=== PATIENT | female | born 1950 | race Caucasian/White ===

== ENCOUNTER 2017-02-02 13:32 | Emergency (ER) | payer MEDICARE ==
--- NOTE | 2017-02-02 14:00 | ERPHSYRPT ---
- History of Present Illness Time Seen by Provider: 02/02/17 13:56 Source: patient Exam Limitations: no limitations Patient Subjective Stated Complaint: fell, injury to forehead and left hand Triage Nursing Assessment: ambulated to room per self. large lac noted to right forehead with minimal bleeding noted. slight swelling to left hand. hand warm, cap refill good Physician History: fell, injury to forehead and left hand Occurred: just prior to arrival Reason for Fall: lost balance, slipped, tripped Injuries/Pain Location: head, upper extremity (left hand) Loss of Consciousness: no loss of consciousness Severity of Pain-Max: none Severity of Pain-Current: none Modifying Factors: Improves With: nothing Associated Symptoms (Fall): denies symptoms Allergies/Adverse Reactions: Sulfa (Sulfonamide Antibiotics) Allergy (Verified 02/02/17 13:46) Hives Home Medications: Aspirin [Adult Low Dose Aspirin EC] 81 mg PO DAILY 12/07/15 [History] Atorvastatin Calcium [Lipitor] 10 mg PO DAILY 12/07/15 [History] Cholecalciferol (Vitamin D3) [Vitamin D] 1 tab PO DAILY 12/07/15 [History] Escitalopram Oxalate 10 mg [Lexapro 10 MG] 1 tab PO DAILY 12/07/15 [History] Levothyroxine Sodium [Synthroid] 1 tab PO DAILY 12/07/15 [History] Multivitamin [Multi-Vitamin Daily] 1 tab PO DAILY 12/07/15 [History] Hx Tetanus, Diphtheria Vaccination/Date Given: No Hx Influenza Vaccination/Date Given: No Hx Pneumococcal Vaccination/Date Given: No - Review of Systems Constitutional: No Symptoms Eyes: No Symptoms Ears, Nose, & Throat: No Symptoms Respiratory: No Symptoms Cardiac: No Symptoms Abdominal/Gastrointestinal: No Symptoms Musculoskeletal: Fall Skin: Other (right forehead laceration above right eye) Neurological: No Symptoms - Past Medical History Pertinent Past Medical History: Yes Neurological History: No Pertinent History ENT History: Cataracts Cardiac History: Other Respiratory History: No Pertinent History Endocrine Medical History: Hypothyroidism Musculoskeletal History: Arthritis GI Medical History: No Pertinent History History: No Pertinent History Psycho-Social History: Depression Female Reproductive Disorders: No Pertinent History Other Medical History: pvc's - Past Surgical History Past Surgical History: Yes Neuro Surgical History: No Pertinent History Cardiac: No Pertinent History Respiratory: No Pertinent History Gastrointestinal: No Pertinent History Genitourinary: No Pertinent History Musculoskeletal: Joint Replacement Female Surgical History: No Pertinent History Other Surgical History: right hip replacement, raj knee replacement january 2015, aug 2015, oct 2015, tonsil as child - Social History Smoking Status: Never smoker Exposure to second hand smoke: No Drug Use: none Patient Lives Alone: No - Nursing Vital Signs Nursing Vital Signs: Initial Vital Signs Temperature 97.3 F Temperature Source Oral Respiratory Rate 16 Pain Intensity 4 - [place] Coma Score Best Eye Response (Kim): (4) open spontaneously Best Verbal Response ([place]): (5) oriented Best Motor Response (Kim): (6) obeys commands Kim Total: 15 - Physical Exam General Appearance: no apparent distress, alert Head Injury: no evidence of injury Eye Exam: PERRL/EOMI ENT Exam: airway nml Neck Exam: normal inspection, No tenderness Respiratory/Chest Exam: normal breath sounds, No chest tenderness, No respiratory distress Cardiovascular Exam: normal heart sounds, regular rate/rhythm Gastrointestinal Exam: soft, No tenderness, No distention, No guarding, No ecchymosis Back Exam: No vertebral tenderness Extremity Exam: normal inspection, joint swelling (left hand), No deformities Neurologic Exam: alert, oriented x 3, cooperative, sensation nml, No motor deficits Skin Exam: normal color, warm, dry, other (4 cms laceration over right eye brow) Oxygen Delivery: Room Air Procedures - Laceration/Wound Repair Right Frontal Wound Location: Right, forehead Wound Length (cm): 4 Wound's Depth, Shape: superficial Wound Explored: clean Irrigated: Yes Hibiclens Prep: Yes Anesthesia: local, 1% lidocaine w/ Epi Volume Anesthetic (ccs): 3 Wound Repaired With: sutures Suture Size/Type: 3-0, nylon Number of Sutures: 5 Layer Closure?: No Sterile Dressing Applied?: Yes Splint Applied?: No Sling Applied?: No - Course Nursing assessment & vital signs reviewed: Yes - Radiology Exams Hand X-ray Interpretation: Reviewed by me, Negative, No Fracture Ordered Tests: Active Orders 24 hr Category Date Time Status Prepare for Sutures STAT Care 02/02/17 14:29 Active Sutures STAT Care 02/02/17 14:29 Active HAND (MINIMUM 3 VIEWS) Stat Exams 02/02/17 13:48 Taken Medication Summary Discontinued Medications Generic Name Dose Route Start Last Admin Trade Name Freq PRN Reason Stop Dose Admin Bacitracin 0.9 gm 02/02/17 14:31 Baciguent Packet TP 02/02/17 14:32 STAT ONE Bacitracin Confirm 02/02/17 14:35 Baciguent Packet Administered 02/02/17 14:36 Dose 1 gm .ROUTE .STK-MED ONE Diphtheria/Tetanus/Acell Pertussis 0.5 ml 02/02/17 14:37 Adacel Vial IM 02/02/17 14:38 .ONCE ONE Diphtheria/Tetanus/Acell Pertussis Confirm 02/02/17 14:35 Adacel Vial Administered 02/02/17 14:36 Dose 0.5 ml IM .STK-MED ONE Lidocaine/Epinephrine Confirm 02/02/17 14:22 Xylocaine 1%/Epi 1:[id number] Mdv 20 Ml Administered 02/02/17 14:23 Dose 5 ml .ROUTE .STK-MED ONE Lidocaine/Epinephrine 5 ml 02/02/17 14:30 Xylocaine 1%/Epi 1:[id number] Mdv 20 Ml IJ 02/02/17 14:31 STAT ONE - Progress Progress: improved Counseled pt/family regarding: diagnosis, need for follow-up - Departure Time of Disposition: 14:41 Departure Disposition: Home Clinical Impression: Laceration of eyebrow and forehead Qualifiers: Encounter type: initial encounter Laterality: right Qualified Code(s): S01.111A - Laceration without foreign body of right eyelid and periocular area, initial encounter Condition: Stable Critical Care Time: No Referrals: KAYLEN CHOI [Primary Care Provider] - Instructions: Laceration Repair -- Simple, Care for a Laceration After Repair, Laceration Repair Additional Instructions: LACERATION CARE 1. Do not use peroxide, merthiolate, alcohol, or betadine. 2. Keep wound clean and dry. 3. Change dressing if it becomes wet or soiled. 4. If you must work, wear protective covering. 5. You may return to the emergency department or see your family physician for suture removal. 6. See your family physician or return to the emergency department for any of the following signs or symptoms: A. Redness B. Swelling C. Discolored drainage D. Red streaks E. Elevated temperature F. Other signs of infection
[2017-02-02] MEDS ORDERED: XYLOCAINE 1%/Epi 1:100000 MDV 20 ML ONE (14:22)
[2017-02-02] MEDS ORDERED: XYLOCAINE 1%/Epi 1:100000 MDV 20 ML IJ ONE (14:30)
[2017-02-02] MEDS ORDERED: BACIGUENT PACKET TP ONE (14:31)
[2017-02-02] MEDS ORDERED: Adacel Vial IM ONE ×2 (14:35→14:37)
[2017-02-02] MEDS ORDERED: BACIGUENT PACKET ONE (14:35)
[2017-02-02 15:01] VITALS: BP 143/71; PULSE 66; O2SAT 93
--- NOTE | 2017-02-02 21:18 | XRAY ---
Indication: Pain following fall. Comparison: September 28, 2013. 3 views of the left hand again demonstrates mild degenerative changes of the first metacarpal multangular articulation. No new/acute bony, articular, or soft tissue abnormalities.
== END 2017-02-02 15:01 | disposition home or self-care (01) ==
LOC: ED 13:32
PROC: 0HQ1XZZ Repair Face Skin, External Approach (ICD-10-PCS; principal; 2017-02-02)
DX: S01.111A Laceration without foreign body of right eyelid and periocular area, initial encounter (principal); W18.30XA Fall on same level, unspecified, initial encounter; M79.89 Other specified soft tissue disorders
CPT/HCPCS: 12013 ×2; 99284; 73130; A9270; 90471; 90715

== ENCOUNTER 2024-09-02 18:22 | Emergency (ER) | payer MEDICARE ==
--- NOTE | 2024-09-02 18:29 | ERPHSYRPT ---
- History of Present Illness Time Seen by Provider: 09/02/24 18:29 Source: patient, family Exam Limitations: no limitations Physician History: This is a morbidly obese 74-year-old white female patient of nurse practitioner Kalyn who at approximately 1645 was sitting on her couch watching TV and then made phone calls to family members but could not find the words to speak per her report. The symptoms completely resolved prior to arrival to the emergency department. Her NIH stroke scale in the emergency department is 0. Patient's primary care provider is nurse shar Mccain. Patient denies chest pain. Patient denies headache. Patient denies visual changes. Patient denies abdominal pain. She denies head injury. Patient does have a history of CHF, h ypothyroidism, hypertension, hyperlipidemia and is on Eliquis. Timing/Duration: today Severity: mild Character of Deficits: none Deficits: no difficulties Baseline/Normal Cognition: alert oriented x 3 Current Cognition: alert oriented x 3 Baseline Gait: walks w/o assistance Associated Symptoms: denies symptoms, other (Was briefly searching for words. Symptoms completely resolved prior to her arrival) Allergies/Adverse Reactions: amoxicillin Allergy (Verified 09/02/24 18:35) Hives clindamycin Allergy (Verified 09/02/24 18:35) Rash Sulfa (Sulfonamide Antibiotics) Allergy (Verified 09/02/24 18:35) Hives Home Medications: Atorvastatin Calcium [Lipitor] 80 mg PO HS 12/07/15 [History] Cholecalciferol (Vitamin D3) [Vitamin D] 1 tab PO DAILY 12/07/15 [History] Escitalopram Oxalate [Lexapro 10 MG] 1 tab PO DAILY 12/07/15 [History] Levothyroxine Sodium [Synthroid] 1 tab PO DAILY 12/07/15 [History] Multivitamin [Multi-Vitamin Daily] 1 tab PO DAILY 12/07/15 [History] Apixaban [Eliquis] 5 mg PO BID 09/02/24 [History] Ergocalciferol (Vitamin D2) [Vitamin D2] 50,000 unit PO Q7D 09/02/24 [History] Sacubitril/Valsartan [Entresto 24 mg-26 mg Tablet] 1 tab PO DAILY 09/02/24 [History] carvediloL [Carvedilol] 0.5 tab PO BID 09/02/24 [History] Hx Tetanus, Diphtheria Vaccination/Date Given: No Hx Influenza Vaccination/Date Given: No Hx Pneumococcal Vaccination/Date Given: No Travel Risk - International Travel Have you traveled outside of the country in past 3 weeks: No - Emerging Infectious Disease Are you exhibiting symptoms associated with any current EIDs: No - Vaccine Status Hx Covid Vaccintation/Booster/Date Given: No - Review of Systems Constitutional: No Symptoms Eyes: No Symptoms Ears, Nose, & Throat: No Symptoms Respiratory: No Symptoms Cardiac: No Symptoms Abdominal/Gastrointestinal: No Symptoms Genitourinary Symptoms: No Symptoms Musculoskeletal: No Symptoms Skin: No Symptoms Neurological: Other (13 forwards earlier today has resolved), No Dizziness, No Gait Changes, No Headache, No Lethargy, No Parasthesia, No Sensory Changes, No Speech Changes Psychological: No Symptoms Endocrine: No Symptoms Hematologic/Lymphatic: No Symptoms Immunological/Allergic: No Symptoms All Other Systems: Reviewed and Negative - Past Medical History Pertinent Past Medical History: Yes Neurological History: Migraines ENT History: Cataracts Cardiac History: Arrhythmia Respiratory History: No Pertinent History Endocrine Medical History: Hypothyroidism Musculoskeletal History: Osteoarthritis GI Medical History: No Pertinent History History: No Pertinent History Psycho-Social History: Depression Female Reproductive Disorders: No Pertinent History Other Medical History: AFIB, PACEMAKER, R CHARLETTE 7 YEARS AGO. - Past Surgical History Past Surgical History: Yes Neuro Surgical History: No Pertinent History Cardiac: No Pertinent History Respiratory: No Pertinent History Gastrointestinal: No Pertinent History Genitourinary: No Pertinent History Musculoskeletal: Joint Replacement Female Surgical History: No Pertinent History Other Surgical History: right hip replacement, raj knee replacement january 2015, aug 2015, oct 2015, tonsil as child - Social History Smoking Status: Never smoker Exposure to second hand smoke: No Drug Use: none Patient Lives Alone: No - Nursing Vital Signs Nursing Vital Signs: Initial Vital Signs Pulse Rate 84 09/02/24 18:33 Respiratory Rate 18 09/02/24 18:33 Blood Pressure 135/67 09/02/24 18:33 O2 Sat by Pulse Oximetry 94 L 09/02/24 18:33 Pain Scale Pain Intensity 0 - [place] Coma Scale Best Eye Response (Kim): (4) open spontaneously Best Verbal Response ([place]): (5) oriented Best Motor Response (Kim): (6) obeys commands Kim Total: 15 - Physical Exam General Appearance: no apparent distress, alert, anxiety, obese Eye Exam: bilateral eye: normal inspection, PERRL, EOMI Ears, Nose, Throat Exam: normal ENT inspection, moist mucous membranes Neck Exam: normal inspection, non-tender, supple, full range of motion Respiratory: normal breath sounds, lungs clear, airway intact, No chest tenderness, No respiratory distress Cardiovascular: regular rate/rhythm, normal heart sounds, normal peripheral pulses Gastrointestinal: soft, normal bowel sounds, No tenderness Pelvic Exam: not done Rectal Exam: not done Back Exam: normal inspection, normal range of motion, No CVA tenderness Extremity Exam: normal inspection, normal range of motion, pelvis stable Mental Status: alert, oriented x 3, cooperative senior medical writer Exam: normal hearing, normal speech, PERRL Coordination/Gait: normal finger to nose, normal gait, normal cerebellar function Motor/Sensory: no motor deficit, no sensory deficit Skin Exam: normal color, warm, dry SpO2 Interpretation: normal O2 Delivery: Room Air - Course Nursing assessment & vital signs reviewed: Yes Ordered Tests: Active Orders 24 hr Category Date Time Status EKG-ER Only STAT Care 09/02/24 19:09 Active IV Insertion STAT Care 09/02/24 19:09 Active NPO (ED) STAT Care 09/02/24 19:09 Active Pulse Oximetry (ED) STAT Care 09/02/24 19:09 Active HEAD WITHOUT CONTRAST [CT] Stat Exams 09/02/24 19:25 Taken CBC W DIFF Stat Lab 09/02/24 19:09 Completed CMP Stat Lab 09/02/24 19:00 Completed CULTURE,URINE Stat Lab 09/02/24 19:16 Received TSH [TSH, 3RD Generation] Stat Lab 09/02/24 19:00 Completed UA W/RFX UR CULTURE Stat Lab 09/02/24 19:16 Completed Lab/Rad Data: Laboratory Result Diagrams 09/02/24 19:09 09/02/24 19:00 Laboratory Results 09/02/24 09/02/24 09/02/24 Range/Units 19:16 19:09 19:00 WBC 6.9 (3.98-10.04) x10^3/uL RBC 4.86 (3.93-5.22) x10^6/uL Hgb 13.7 (11.2-15.7) g/dL Hct 42.7 (34.1-44.9) % MCV 87.9 (79.4-94.8) fL MCH 28.2 (25.6-32.2) pg MCHC 32.1 L (32.2-35.5) g/dL RDW 14.3 (11.7-14.4) % Plt Count 201 (182-369) x10^3/uL MPV 10.5 (9.4-12.3) fL Gran % 52.9 (34.0-71.1) % Immature Gran % (Auto) 0.1 (0.001-0.429) % Nucleat RBC Rel Count 0.0 (0.00-0.2) % Eos # (Auto) 0.14 (0.04-0.36) x10^3/uL Immature Gran # (Auto) 0.01 (0.001-0.031) x10^3u/L Absolute Lymphs (auto) 2.56 (1.18-3.74) x10^3/uL Absolute Monos (auto) 0.54 (0.24-0.86) x10^3/uL Absolute Nucleated RBC 0.00 (0.00-0.012) x10^3u/L Lymphocytes % 36.9 (19.3-51.7) % Monocytes % 7.8 (4.7-12.5) % Eosinophils % 2.0 (0.7-5.8) % Basophils % 0.3 (0.1-1.2) % Absolute Granulocytes 3.67 (1.56-6.13) x10^3/uL Basophils # 0.02 (0.01-0.08) x10^3/uL Sodium (135-145) mmol/L Potassium (3.5-5.1) mmol/L Chloride (98-107) mmol/L Carbon Dioxide (22-30) mmol/L Anion Gap (5-15) MEQ/L BUN (7-17) mg/dL Creatinine (0.52-1.04) mg/dL Estimated GFR ML/MIN Glucose (74-106) mg/dL Calcium (8.4-10.2) mg/dL Total Bilirubin (0.2-1.3) mg/dL AST (14-36) U/L ALT (0-35) U/L Alkaline Phosphatase (38-126) U/L Serum Total Protein (6.3-8.2) g/dL Albumin (3.5-5.0) g/dL Free T4 1.35 (0.78-2.19) ng/dL TSH 3rd Generation (0.470-4.680) mIU/L Urine Color Yellow (Yellow) Urine Appearance Clear (Clear) Urine pH 6.0 (4.6-8.0) Ur Specific [place] <=1.005 (1.005-1.030) Urine Protein Negative (Negative) Urine Glucose (UA) Negative (Negative) mg/dL Urine Ketones Negative (Negative) Urine Blood Negative (Negative) Urine Nitrite Negative (Negative) Urine Bilirubin Negative (Negative) Urine Urobilinogen 0.2 (0.2) mg/dL Ur Leukocyte Esterase Large A (Negative) U Hyaline Cast (Auto) NONE SEEN (0-2) /LPF Urine Microscopic RBC 0-2 (0-5) /HPF Urine Microscopic WBC 21-50 A (0-5) /HPF Ur Epithelial Cells None Seen (None Seen) /HPF Urine Bacteria None Seen (None Seen) /HPF Urine Culture Reflexed YES (NO) 09/02/24 09/02/24 Range/Units 19:00 19:00 WBC (3.98-10.04) x10^3/uL RBC (3.93-5.22) x10^6/uL Hgb (11.2-15.7) g/dL Hct (34.1-44.9) % MCV (79.4-94.8) fL MCH (25.6-32.2) pg MCHC (32.2-35.5) g/dL RDW (11.7-14.4) % Plt Count (182-369) x10^3/uL MPV (9.4-12.3) fL Gran % (34.0-71.1) % Immature Gran % (Auto) (0.001-0.429) % Nucleat RBC Rel Count (0.00-0.2) % Eos # (Auto) (0.04-0.36) x10^3/uL Immature Gran # (Auto) (0.001-0.031) x10^3u/L Absolute Lymphs (auto) (1.18-3.74) x10^3/uL Absolute Monos (auto) (0.24-0.86) x10^3/uL Absolute Nucleated RBC (0.00-0.012) x10^3u/L Lymphocytes % (19.3-51.7) % Monocytes % (4.7-12.5) % Eosinophils % (0.7-5.8) % Basophils % (0.1-1.2) % Absolute Granulocytes (1.56-6.13) x10^3/uL Basophils # (0.01-0.08) x10^3/uL Sodium 140 (135-145) mmol/L Potassium 4.4 (3.5-5.1) mmol/L Chloride 102 (98-107) mmol/L Carbon Dioxide 30 (22-30) mmol/L Anion Gap 12.8 (5-15) MEQ/L BUN 15 (7-17) mg/dL Creatinine 0.75 (0.52-1.04) mg/dL Estimated GFR 84.0 ML/MIN Glucose 98 (74-106) mg/dL Calcium 9.7 (8.4-10.2) mg/dL Total Bilirubin 0.60 (0.2-1.3) mg/dL AST 33 (14-36) U/L ALT 24 (0-35) U/L Alkaline Phosphatase 144 H (38-126) U/L Serum Total Protein 7.2 (6.3-8.2) g/dL Albumin 4.2 (3.5-5.0) g/dL Free T4 (0.78-2.19) ng/dL TSH 3rd Generation 1.550 (0.470-4.680) mIU/L Urine Color (Yellow) Urine Appearance (Clear) Urine pH (4.6-8.0) Ur Specific [place] (1.005-1.030) Urine Protein (Negative) Urine Glucose (UA) (Negative) mg/dL Urine Ketones (Negative) Urine Blood (Negative) Urine Nitrite (Negative) Urine Bilirubin (Negative) Urine Urobilinogen (0.2) mg/dL Ur Leukocyte Esterase (Negative) U Hyaline Cast (Auto) (0-2) /LPF Urine Microscopic RBC (0-5) /HPF Urine Microscopic WBC (0-5) /HPF Ur Epithelial Cells (None Seen) /HPF Urine Bacteria (None Seen) /HPF Urine Culture Reflexed (NO) - Progress Progress: improved Progress Note: 09/02/24 19:41 My medical decision making and the assignment of moderate complexity to this patient's medical issue today is based on review of patient's past medical history, review of patient's medication list, review the patient drug allergy list, history present illness and physical findings on examination. The workup in this patient includes placement of intravenous line, urinalysis, CBC, CMP, twelve-lead EKG, CT scan of the head without contrast. Differential diagnosis includes but not limited to acute intracranial abnormality, TIA, electrolyte abnormalities, dehydration, urinary tract in fection 09/02/24 20:47 I interpreted the patient's laboratory data results. Based on the laboratory data results, the patient has a urinary tract infection. CT scan of the patient's head was interpreted by the radiologist and I reviewed the impression. The impression states stable nonacute senile brain. Counseled pt/family regarding: lab results, diagnosis, need for follow-up, rad results Medical Desision Making - Independent Historian Additional History obtained from: Child, Family - Diagnostic Testing Diagnostic test were ordered, analyzed, and reviewed by me: Yes Radiological Interpretation: Reviewed by me, Teleradiologist Report - Risk of complications The pt has a mod risk of morbidity or mortality based on: Need for prescription drug management - Departure Departure Disposition: Home Clinical Impression: Confusion, UTI (urinary tract infection) Condition: Stable Critical Care Time: No Referrals: MAXINE MCCAIN, [facility] [Primary Care Provider] - Follow up/PCP as directed Additional Instructions: Drink plenty of fluids. Take your medications as prescribed. Call your primary care provider tomorrow, 09/03/2024 to make arrangements for follow-up appointment for further evaluation management. Prescriptions: Ciprofloxacin [Cipro 500 MG] 500 mg PO BID #14 tablet
[2024-09-02 18:59] VITALS: TEMP 97.6
[2024-09-02 19:15] LABS: Absolute Neutrophil Ct (ANC) 3.67 x10^3/uL (1.56-6.13); BASOPHIL % 0.3 % (0.1-1.2); Basophil (Absolute #) 0.02 x10^3/uL (0.01-0.08); Eosinophil (Absolute #) 0.14 x10^3/uL (0.04-0.36); Hematocrit 42.7 % (34.1-44.9); Hemoglobin 13.7 g/dL (11.2-15.7); IMMATURE GRAN # 0.01 x10^3u/L (0.001-0.031); IMMATURE GRAN % 0.1 % (0.001-0.429); Lymphocyte (Absolute #) 2.56 x10^3/uL (1.18-3.74); Lymphocytes % 36.9 % (19.3-51.7); Mean Cell Volume 87.9 fL (79.4-94.8); Mean Corpuscular Hemoglobin 28.2 pg (25.6-32.2); Mean Corpuscular Hgb Concent. 32.1 g/dL (32.2-35.5); Mean Platelet Volume 10.5 fL (9.4-12.3); Monocyte (Absolute #) 0.54 x10^3/uL (0.24-0.86); Monocytes % 7.8 % (4.7-12.5); Neutrophil % 52.9 % (34.0-71.1); Platelet Count 201 x10^3/uL (182-369); Red Blood Count 4.86 x10^6/uL (3.93-5.22); Red Cell Distribution Width 14.3 % (11.7-14.4); White Blood Count 6.9 x10^3/uL (3.98-10.04)
[2024-09-02 19:18] LABS: Appearance Clear (Clear); Bilirubin Negative (Negative); Blood Negative (Negative); Glucose, Urine Negative (Negative); Ketones Negative (Negative); Leukocyte Esterase Large (Negative); Nitrite Negative (Negative); Protein,Urine Dip Negative (Negative); Specific Gravity <=1.005 (1.005-1.030); Urobilinogen 0.2 mg/dL (0.2)
[2024-09-02 19:23] LABS: Bacteria None Seen /HPF (None Seen); Epithelial Cells None Seen /HPF (None Seen); Hyaline Casts NONE SEEN /LPF (0-2); RBC 0-2 /HPF (0-5); WBC 21-50 /HPF (0-5)
[2024-09-02 19:31] LABS: ALBUMIN 4.2 g/dL (3.5-5.0); ANION GAP 12.8 MEQ/L (5-15); BILIRUBIN,TOTAL 0.6 mg/dL (0.2-1.3); Calcium 9.7 mg/dL (8.4-10.2); Creatinine 1 0.75 mg/dL (0.52-1.04); Potassium 4.4 mmol/L (3.5-5.1); Total Protein 7.2 g/dL (6.3-8.2)
[2024-09-02] MEDS ORDERED: ROCEPHIN 1 GM / 100 ML NaCl 1 GM/100 ML IVPB IV ONE (20:52)
[2024-09-02] MEDS: ROCEPHIN 1 GM / 100 ML NaCl 1 GM/100 ML IVPB IV ONE (20:53)
[2024-09-02 21:23] VITALS: RESP 19; O2SAT 95
[2024-09-02 21:41] VITALS: BP 146/75; PULSE 67
--- NOTE | 2024-09-03 08:39 | XRAY ---
Indication: Confusion. Altered mental status. Multiple contiguous axial images obtained through the head without contrast. Comparison: January Age-appropriate global atrophy with minimal periventricular degenerative micro-ischemia bilaterally. Minimal physiologic calcifications left basal ganglia. No acute intracranial hemorrhage, abnormal extra-axial fluid collection, or mass effect. Fourth ventricle is midline without hydrocephalus. Osman-white matter differentiation preserved. Bony calvarium intact. Visualized paranasal sinuses and mastoid air cells are clear. Impression: Nonacute senile brain.
== END 2024-09-02 21:30 | disposition home or self-care (01) ==
LOC: ED 18:22
DX: R41.0 Disorientation, unspecified (principal); N39.0 Urinary tract infection, site not specified; R47.01 Aphasia; I11.0 Hypertensive heart disease with heart failure; I50.9 Heart failure, unspecified; E78.5 Hyperlipidemia, unspecified; Z79.01 Long term (current) use of anticoagulants; Z79.899 Other long term (current) drug therapy
CPT/HCPCS: 36000; 36415; 70450; 80053; 81001; 84439; 84443; 85025; 87086; 93005; 94760; 96365; 99284; J0696